=== PATIENT | female | born 1960 | race Asian ===

== ENCOUNTER 2021-07-02 17:20 | Emergency (ER) | payer OTHER, MEDICAID ==
[~2021-07-02] VITALS: Ht 157.5 cm; Wt 47.6 kg
[2021-07-02 18:19] VITALS: BP 150/87
[2021-07-02 21:00] VITALS: BP 132/78
--- NOTE | 2021-07-02 21:00 | NUR ---
Patient discharged with v/s stable. Written and verbal after care instructions given and explained. Patient verbalized understanding. Ambulatory with steady gait. All questions addressed prior to discharge. Advised to follow up with PMD.
== END 2021-07-02 21:00 | disposition home or self-care (01) ==
LOC: MED 17:20
DX: S09.90XA Unspecified injury of head, initial encounter (principal); I10 Essential (primary) hypertension; V98.8XXA Other specified transport accidents, initial encounter; Y93.89 Activity, other specified; Y92.89 Other specified places as the place of occurrence of the external cause; Y99.8 Other external cause status
CPT/HCPCS: 70450; 99284

== ENCOUNTER 2021-09-12 10:41 | Inpatient (IN) | payer MEDICAID, OTHER ==
[~2021-09-12] VITALS: Ht 157.5 cm; Wt 46.7 kg
[2021-09-12 10:57] VITALS: BP 122/57
--- NOTE | 2021-09-12 11:07 | NUR ---
PT AMBULATED WITH SISTER TO ROOM 7
--- NOTE | 2021-09-12 11:29 | NUR ---
61 y/o female bib daughter c/o headache, numbness, nausea/vomiting, weakness, and heart palpitations x 1 month intermittently. Pt states 7/10 headache with nausea at this time. RR even and unlabored. States mild blurred vision. Awake and alert. Equal buttonhole tacker strength bilaterally. Placed on bedside monitor. Bed locked and in lowest position. medhx: stroke (nov 2020)
--- NOTE | 2021-09-12 11:32 | NUR ---
20G placed to left ac, blood drawn at this time
--- NOTE | 2021-09-12 11:42 | NUR ---
Dr. Romero at bedside evaluating patient.
--- NOTE | 2021-09-12 11:43 | NUR ---
Spike escobar in ED - 09/12/21 at [email or web address] Romero at bedside evaluating patient
--- NOTE | 2021-09-12 12:40 | NUR ---
Pt taken to CT via [place]
--- NOTE | 2021-09-12 12:51 | NUR ---
Pt returned from [facility] via [facility]
--- NOTE | 2021-09-12 12:52 | NUR ---
Pt ambulated to restroom with steady gait
[2021-09-12 13:23] LABS: BASOPHILS % (AUTO) 0.7 % (0.0-2.0); EOSINOPHILS # (AUTO) 0.2 K/uL (0-0.4); EOSINOPHILS % (AUTO) 2.3 % (0.0-4.0); HEMATOCRIT 39.1 % (36-48); HEMOGLOBIN 13.2 g/dL (12.0-16.0); LYMPHOCYTES # (AUTO) 1.6 K/uL (2.5-16.5); LYMPHOCYTES % (AUTO) 23.3 % (20.5-51.1); MEAN CORPUSCULAR HEMOGLOBIN 30 pg (27-31); MEAN CORPUSCULAR HGB CONC 34 g/dL (33-37); MEAN CORPUSCULAR VOLUME 88.4 fL (80-94); MONOCYTES # (AUTO) 0.4 K/uL (0.8-1.0); MONOCYTES % (AUTO) 6.5 % (1.7-9.3); NEUTROPHILS # (AUTO) 4.6 K/uL (1.8-7.7); NEUTROPHILS % (AUTO) 67.2 % (42.2-75.2); PLATELET COUNT (AUTO) 267 K/uL (140-450); RED BLOOD CELL COUNT(AUTO) 4.43 MIL/uL (4.20-5.40); RED CELL DISTRIBUTION WIDTH 12.9 % (11.6-13.7); WHITE BLOOD COUNT (AUTO) 6.8 K/uL (4.8-10.8)
[2021-09-12 13:43] LABS: ALBUMIN 3.7 g/dL (3.4-5.0); ANION GAP 12.2 (8-16); CARBON DIOXIDE 28.6 mmol/L (21-32); CREATININE 0.9 mg/dL (0.6-1.3); MAGNESIUM 2.3 mg/dL (1.8-2.4); PHOSPHORUS 4.1 mg/dL (2.5-4.9); POTASSIUM 3.8 mmol/L (3.5-5.1); TOTAL BILIRUBIN 0.4 mg/dL (0.0-1.0)
--- NOTE | 2021-09-12 15:28 | NUR ---
Pt resting with eyes closed, visible rise and fall of the chest. VSS, Will continue to monitor
[2021-09-12] MEDS ORDERED: MECLIZINE 25 MG TAB PO PRN (15:30)
[2021-09-12] MEDS ORDERED: MORPHINE SULFATE 2 MG/ML SYR IVP PRN (15:30)
[2021-09-12] MEDS ORDERED: DOCUSATE SODIUM 100 MG GELCAP PO PRN (15:30)
[2021-09-12] MEDS ORDERED: ACETAMINOPHEN 325 MG TAB PO PRN (15:30)
[2021-09-12] MEDS ORDERED: SODIUM PHOS / POTASSIUM PHOS 1 PKT PDR PO PRN (15:30)
[2021-09-12] MEDS ORDERED: MAGNESIUM OXIDE 400 MG TAB PO PRN (15:30)
[2021-09-12] MEDS ORDERED: NACL 0.9% 1,000 ML IV SCH (15:30)
[2021-09-12] MEDS ORDERED: HYDROcodone/APAP 5/325 MG 1 TAB TAB PO PRN (15:30)
[2021-09-12] MEDS ORDERED: ONDANSETRON 4 MG/2 ML VIAL IM/IVP PRN (15:30)
[2021-09-12] MEDS ORDERED: POTASSIUM CHLORIDE 10 MEQ TABER PO PRN (15:30)
[2021-09-12 15:50] LABS: MAGNESIUM 2.4 mg/dL (1.8-2.4); PHOSPHORUS 4.2 mg/dL (2.5-4.9)
[2021-09-12 16:24] LABS: APPEARANCE,URINE CLEAR (CLEAR); BILIRUBIN,URINE NEGATIVE (NEGATIVE); BLOOD, URINE TRACE-I (NEGATIVE); COLOR,URINE YELLOW (YELLOW); LEUKOCYTE ESTERASE ,URINE NEGATIVE (NEGATIVE); NITRITE, URINE NEGATIVE (NEGATIVE); PH,URINE 5.5 (5.0-9.0); UGLUCOSE NEGATIVE (NEGATIVE)
[2021-09-12] MEDS ORDERED: PANT40EC PO (16:33)
[2021-09-12] MEDS ORDERED: IMI25 PO (16:33)
[2021-09-12 16:39] LABS: RBC,URINE NONE SEEN /HPF (0-5)
[2021-09-12 16:40] LABS: WBC,URINE NONE SEEN /HPF (0-5)
[2021-09-12 16:45] VITALS: BP 128/59
[2021-09-12 17:10] VITALS: BP 128/59
[2021-09-13] MEDS ORDERED: PANTOPRAZOLE 40 MG TABEC PO SCH (09:00)
--- NOTE | 2021-09-16 14:20 | NUR ---
LATE ENTRY- NORMAL SALINE IVF DISCONTINUED AT 1710.
== END 2021-09-12 17:00 | disposition home or self-care (01) | DRG 54 ==
LOC: MED 10:41 → MTU 15:32
PROVIDERS: ADMIT Hospitalist; ATTEND Hospitalist
DX: G43.909 Migraine, unspecified, not intractable, without status migrainosus (principal); I10 Essential (primary) hypertension; R53.1 Weakness; R55 Syncope and collapse; Z79.899 Other long term (current) drug therapy; Z86.73 Personal history of transient ischemic attack (TIA), and cerebral infarction without residual deficits
CPT/HCPCS: 36415; 70450; 71045; 80053; 81001; 82140; 82948; 83735; 84100; 84484; 85025; 93005; 93880; 96360; 99285; Q0092; Q9967

== ENCOUNTER 2022-03-22 14:05 | Emergency (ER) | payer MEDICAID, OTHER ==
[~2022-03-22] VITALS: Ht 157.5 cm; Wt 47.7 kg
[~2022-03-22 14:05] MED LIST: IMI25 PO; PANT40EC PO
[2022-03-22 14:45] VITALS: BP 126/77
[2022-03-22] MEDS ORDERED: LIDOCAINE MPF 1% 10 MG/ML VIAL INJ ONE (15:45)
[2022-03-22] MEDS ORDERED: BACITRACIN OINT 500 UNITS/GM PKT TP ONE (15:45)
[2022-03-22] MEDS ORDERED: BACI1PAC6 TP (16:46)
[2022-03-22] MEDS ORDERED: CEPH-588 PO (16:46)
[2022-03-22] MEDS ORDERED: NAPR-54 PO (16:46)
--- NOTE | 2022-03-22 16:50 | NUR ---
DRESSED WOUND ON LEFT INDEX FINGER WITH NON-ADHERENT PAD AND GAUZE ROLL. FINGER WAS ALSO PLACED IN A FINGER SPLINT AND WRAPPED WITH 2 INCH IGOR WRAP PER ORDER OF PA. BRADLEY MONIQUE NOTIFIED.
[2022-03-22 17:13] VITALS: BP 128/70
--- NOTE | 2022-03-22 17:13 | NUR ---
Patient discharged with v/s stable. Written and verbal after care instructions FOR LACERATION CARE AND FINGER FRACURE given and explained. Patient alert, oriented and verbalized understanding of instructions. Ambulatory with steady gait. All questions addressed prior to discharge. ID band removed. Patient advised to follow up with PMD. Rx of BACITRACIN, NAPROXEN, AND CEPHALEXIN given. Opportunity to ask questions provided and answered.
--- NOTE | 2022-03-22 17:14 | NUR ---
Chart checked and completed. The patient's care was reviewed and supervised by Jessica Olivia RN.
== END 2022-03-22 17:13 | disposition home or self-care (01) ==
LOC: MED 14:05
DX: S62.631A Displaced fracture of distal phalanx of left index finger, initial encounter for closed fracture (principal); S61.211A Laceration without foreign body of left index finger without damage to nail, initial encounter; I10 Essential (primary) hypertension; Z86.73 Personal history of transient ischemic attack (TIA), and cerebral infarction without residual deficits; Z79.1 Long term (current) use of non-steroidal anti-inflammatories (NSAID); Z79.2 Long term (current) use of antibiotics; Z79.899 Other long term (current) drug therapy; W31.2XXA Contact with powered woodworking and forming machines, initial encounter; Y92.89 Other specified places as the place of occurrence of the external cause; Y93.89 Activity, other specified; Y99.8 Other external cause status
CPT/HCPCS: 12001; 73140; 90471; 90715; 99283; J2001

== ENCOUNTER 2022-04-12 19:56 | Emergency (ER) | payer OTHER ==
[~2022-04-12] VITALS: Ht 154.9 cm; Wt 49.0 kg
[~2022-04-12 19:56] MED LIST changes: +BACI1PAC6 TP; +CEPH-588 PO; +NAPR-54 PO
[2022-04-12 20:00] VITALS: BP 178/94
--- NOTE | 2022-04-12 20:02 | NUR ---
BIB SISTER WITH C/O HIGH BP X 2 READINGS. PT C/O LEFT ARM HEAVINESS AND NUMBNESS. PMH: ANEURYSM, STROKE, CRANIOTOMY, 11/2020
--- NOTE | 2022-04-12 20:02 | NUR ---
PT BROUGHT TO BED #11
--- NOTE | 2022-04-12 20:15 | NUR ---
SL ESTABLISHED, LABS DRAWN
--- NOTE | 2022-04-12 20:24 | NUR ---
TO CT VIA W/C
[2022-04-12 20:33] LABS: BASOPHILS % (AUTO) 0.5 % (0.0-2.0); EOSINOPHILS # (AUTO) 0.2 K/uL (0-0.4); EOSINOPHILS % (AUTO) 2.1 % (0.0-4.0); HEMOGLOBIN 13.3 g/dL (12.0-16.0); LYMPHOCYTES # (AUTO) 1.6 K/uL (2.5-16.5); LYMPHOCYTES % (AUTO) 21.4 % (20.5-51.1); MEAN CORPUSCULAR HEMOGLOBIN 29 pg (27-31); MEAN CORPUSCULAR HGB CONC 34 g/dL (33-37); MEAN CORPUSCULAR VOLUME 86.1 fL (80-94); MONOCYTES # (AUTO) 0.4 K/uL (0.8-1.0); MONOCYTES % (AUTO) 5.8 % (1.7-9.3); NEUTROPHILS # (AUTO) 5.4 K/uL (1.8-7.7); NEUTROPHILS % (AUTO) 70.2 % (42.2-75.2); PLATELET COUNT (AUTO) 281 K/uL (140-450); RED BLOOD CELL COUNT(AUTO) 4.53 MIL/uL (4.20-5.40); WHITE BLOOD COUNT (AUTO) 7.7 K/uL (4.8-10.8)
--- NOTE | 2022-04-12 20:40 | NUR ---
RETURNED FROM CT
[2022-04-12 20:50] LABS: ANION GAP 11.9 (8-16); CARBON DIOXIDE 26.5 mmol/L (21-32); CREATININE 0.9 mg/dL (0.6-1.3); POTASSIUM 3.4 mmol/L (3.5-5.1); TOTAL BILIRUBIN 0.3 mg/dL (0.0-1.0)
--- NOTE | 2022-04-12 22:00 | NUR ---
PT STATES "I'M FEELING BETTER".
[2022-04-12] MEDS ORDERED: DIPH25TA53 PO (22:07)
[2022-04-12] MEDS ORDERED: PROC-66 PO (22:07)
[2022-04-12 22:45] VITALS: BP 154/81
--- NOTE | 2022-04-12 22:45 | NUR ---
Patient discharged with v/s stable. Written and verbal after care instructions given and explained. Patient alert, oriented and verbalized understanding of instructions. Ambulatory with steady gait. All questions addressed prior to discharge. ID band removed. Patient advised to follow up with PMD. Rx of Benadryl, Compazine given. Patient educated on indication of medication including possible reaction and side effects. Opportunity to ask questions provided and answered.
== END 2022-04-12 22:45 | disposition home or self-care (01) ==
LOC: MED 19:56
DX: I10 Essential (primary) hypertension (principal); R51.9 Headache, unspecified; Z48.02 Encounter for removal of sutures; Z86.73 Personal history of transient ischemic attack (TIA), and cerebral infarction without residual deficits; Z98.890 Other specified postprocedural states
CPT/HCPCS: 36415; 70450; 80053; 85025; 99284